=== PATIENT | female | born 1980 | race Caucasian/White ===

== ENCOUNTER 2017-12-19 08:30 | Inpatient (IN) | payer BC, OTHER ==
[2017-12-19 09:00] VITALS: BMI 30.8
[2017-12-19 09:46] LABS: Amnisure Test RUPTURE DETECTED (No Rupture)
[2017-12-19 09:48] LABS: Amnisure Internal Control QC ACCEPTABLE (ACCEPTABLE)
[2017-12-19] MEDS ORDERED: Zolpidem Tartrate 5 MG TAB PO PRN (11:08)
[2017-12-19] MEDS ORDERED: Butorphanol Tartrate 1 MG/ML VIAL SLOW IVP PRN (11:08)
[2017-12-19] MEDS ORDERED: Docusate 100 MG CAP PO PRN (11:08)
[2017-12-19] MEDS ORDERED: Ondansetron PF 4 MG/2 ML Vial IVP PRN ×2 (11:08→16:11)
[2017-12-19] MEDS ORDERED: Promethazine HCl 25 MG/ML VIAL IM PRN ×2 (11:08→16:11)
[2017-12-19] MEDS ORDERED: Bicitra 30 ML UDCUP PO SCH (11:15)
[2017-12-19 11:20] LABS: Hemoglobin 13.4 g/dL (12.0-16.0); Mean Corpuscular HGB CONC 32.7 g/dL (32.0-36.0); Mean Corpuscular Hemoglobin 28.9 pg (27.0-31.0); Mean Corpuscular Volume 88.4 fL (78.0-98.0); Mean Platelet Volume 10.3 fL (7.4-10.4); Platelet Count 168 thou/uL (130-400); RBC Distribution Width 12.7 % (11.5-14.5); Red Blood Cell (RBC) Count 4.64 mill/uL (4.20-5.40); White Blood Cell (WBC) Count 8.4 thou/uL (4.8-10.8)
[2017-12-19] MEDS ORDERED: CEFAZOLIN 2 GM/50 ML BAG IVPB SCH (11:30)
[2017-12-19 12:04] LABS: Syphilis Antibody Nonreactive (Nonreactive); Syphilis Antibody Index 0.03 S/CO (<1.00 Non-Reactive)
[2017-12-19 12:05] LABS: HBSAg Index 0.19 S/CO (0-0.99); Hep B Surf Ag Non-Reactive S/CO (NonReactive)
[2017-12-19] MEDS ORDERED: Fentanyl 100 MCG/2 ML VIAL ONE (12:49)
[2017-12-19] MEDS ORDERED: Oxytocin 10 UNITS/ML VIAL ONE (12:50)
[2017-12-19] MEDS ORDERED: Ondansetron PF 4 MG/2 ML Vial ONE ×2 (12:50→15:21)
[2017-12-19] MEDS ORDERED: PHENYLEPHRINE-NS 100 MCG/ML 10 ML SYRINGE ONE (12:50)
[2017-12-19] MEDS ORDERED: Morphine PF 1 MG/ML SYR ONE (12:50)
[2017-12-19] MEDS ORDERED: Ketorolac Tromethamine 30 MG/ML VIAL ONE ×2 (12:50→15:21)
[2017-12-19] MEDS ORDERED: Lidocaine 1% PF 5 ML VIAL ONE (12:56)
[2017-12-19] MEDS ORDERED: Bupivacaine 0.75% W/DEXTROSE 8.25% 2 ML AMP ONE (12:56)
[2017-12-19] MEDS ORDERED: ePHEDrine/0.9% NaCl/PF SYRINGE 50 mg/10 ml ONE ×2 (13:21→15:21)
[2017-12-19] MEDS ORDERED: Lanolin Ointment 7 GM TUBE TOP PRN (14:27)
[2017-12-19] MEDS ORDERED: Bisacodyl 10 MG SUPP PR PRN (14:27)
[2017-12-19] MEDS ORDERED: Acetaminophen 325 MG TAB PO PRN (14:27)
[2017-12-19] MEDS ORDERED: HYDROcodone/Acetaminophen 5/325 mg Tablet PO PRN ×2 (14:27)
[2017-12-19] MEDS ORDERED: Naloxone HCl 0.4 mg/ml Vial IV PRN (16:11)
[2017-12-19] MEDS ORDERED: Promethazine HCl 25 MG SUPP PR PRN (16:11)
[2017-12-19] MEDS ORDERED: diphenhydrAMINE 50 MG/ML VIAL IVP PRN (16:11)
[2017-12-19] MEDS ORDERED: Ketorolac Tromethamine 30 MG/ML VIAL IVP PRN (16:11)
[2017-12-19] MEDS ORDERED: Naloxone HCl 0.4 mg/ml Vial IVP PRN ×2 (16:11)
[2017-12-19] MEDS ORDERED: Eucerin (Mineral Oil/Petrolatum,White) 30 gm Jar TOP PRN (16:11)
[2017-12-19] MEDS ORDERED: Communication Order-Pharmacy FS SCH (16:15)
[2017-12-19] MEDS ORDERED: Docusate Calcium (SURFAK) 240 MG CAP PO SCH (21:00)
[2017-12-19] MEDS ORDERED: Ibuprofen 800 MG TAB PO SCH (22:00)
[2017-12-20] MEDS ORDERED: Butorphanol Tartrate 1 MG/ML VIAL SLOW IVP PRN (04:15)
[2017-12-20] MEDS ORDERED: HYDROcodone/Acetaminophen 5/325 mg Tablet PO PRN (04:15)
[2017-12-20 06:20] LABS: Hemoglobin 10.4 g/dL (12.0-16.0); Mean Corpuscular HGB CONC 32.6 g/dL (32.0-36.0); Mean Corpuscular Hemoglobin 29.4 pg (27.0-31.0); Mean Platelet Volume 9.5 fL (7.4-10.4); Platelet Count 138 thou/uL (130-400); RBC Distribution Width 12.6 % (11.5-14.5); Red Blood Cell (RBC) Count 3.54 mill/uL (4.20-5.40); White Blood Cell (WBC) Count 9.6 thou/uL (4.8-10.8)
[2017-12-20] MEDS ORDERED: Prenatal Vitamin 1 TAB PO SCH (09:00)
[2017-12-20] MEDS: Lactated Ringer's 1,000 ML IV SCH ×4 (09:02→14:58)
[2017-12-20] MEDS: Prenatal Vitamin 1 TAB PO SCH (09:03)
[2017-12-20] MEDS: Ferrous Sulfate 325 MG TAB PO SCH (09:04)
[2017-12-20] MEDS: HYDROcodone/Acetaminophen 5/325 mg Tablet PO PRN (15:05)
[2017-12-20] MEDS: Ibuprofen 800 MG TAB PO SCH ×2 (15:05→22:02)
[2017-12-21] MEDS: Lactated Ringer's 1,000 ML IV SCH ×2 (05:29→09:42)
[2017-12-21] MEDS: Ibuprofen 800 MG TAB PO SCH ×2 (05:57→14:01)
[2017-12-21] MEDS: Ferrous Sulfate 325 MG TAB PO SCH (08:13)
[2017-12-21] MEDS: Prenatal Vitamin 1 TAB PO SCH (08:15)
[2017-12-21] MEDS: HYDROcodone/Acetaminophen 5/325 mg Tablet PO PRN ×2 (08:15→14:09)
--- NOTE | 2017-12-21 08:20 | OP ---
DATE OF PROCEDURE: 12/19/2017 ATTENDING STAFF PHYSICIAN: Rai Villagomez M.D. SURGEONS: 1. Rai Villagomez M.D. 2. Elyssa Champagne MD PREOPERATIVE DIAGNOSES: 1. Term intrauterine at 38 and 3/7 weeks. 2. Spontaneous rupture of membranes in early labor. 3. Law breech presentation. POSTOPERATIVE DIAGNOSES. 1. Term intrauterine at 38 and 3/7 weeks. 2. Spontaneous rupture of membranes in early labor. 3. Law breech presentation. PROCEDURE: Primary low-transverse section. ANESTHESIA: Spinal catheterization. FINDINGS: 1. SROM, confirmed in Labor and Delivery. 2. Active labor with regular contractions. 3. Law breech presentation, confirmed with ultrasound. 4. Vigorous female , 5 pounds and 10 ounces. Apgars were 9 and 9. 5. Normal uterus, tubes, and ovaries. COMPLICATIONS: None. SPECIMENS REMOVED: Cord blood. ESTIMATED BLOOD LOSS: 500 mL (QBL 481 mL). HISTORY AND INDICATIONS: Mrs. Kayleigh Washburn is a very pleasant 37-year-old white female, 1, para 0, who is followed in my clinic for obstetric care. Kayleigh called early on the morning of 12/19 complaining of leaking fluid. She was told to present to Labor and Delivery for spontaneous ru pture of membranes (SROM was confirmed). The patient was known to be breech presentation. Presentat ion was confirmed with ultrasound in Labor and Delivery. The patient was noted to be brian dwayne ry 3-4 minutes with increased frequency of her contractions. Because of the clinical findings as not ed above, we elected to proceed with primary low-transverse section. The patient was counse led at length and questions were answered to her satisfaction. Surgical disclosures were signed and placed in the chart. PROCEDURE IN DETAIL: After thorough consent and counseling, Mrs. Kayleigh Washburn was taken to the ope rating room and adequate level of anesthesia was obtained by spinal catheterization. The patient was prepped and draped in the usual fashion for abdominal surgery. A Escobedo was placed in the bladder, w hich was noted to be draining clear urine. Attention was then turned to performing the low-transvers e section. A Pfannenstiel incision was made and carried sharply to the fascia, which was also sharply incised. The midline was identified and the rectus muscles were retracted laterally. The abdominal peritoneal cavity was entered with usual safeguards carried out. A retractor was placed and a bladder flap was created on the vesicouterine peritoneum. A bladder blade was then placed. A low-transverse incisio n was made on the well-developed lower uterine segment. Upon entering the amniotic sac, scant amount of amniotic fluid was appreciated. As noted above, the was noted to be law breech presenta tion. The breech was carefully delivered in an atraumatic fashion. Using the Mauriceau maneuver, sh oulders and aftercoming head were then carefully delivered. The baby was bulb suctioned on the abdom en. The cord was doubly clamped and cut and the was handed to the pediatric team in [facility] for delivery. The infant was a vigorous viable female weighing 5 pounds 10 ounces with Apgars of 9 and 9 obtained at 1 and 5 minutes respectively. Cord blood was obtained. The placenta was manually removed from the uterus. The uterus was exteriorized and good tone was noted. The uterine cavity w as cleared of any remaining clot and fluid. The low-transverse incision was closed with a running-lo cking ligature of #1 chromic. Several hhwatd-[id number]-mrsdr ligatures of #1 chromic were also placed to fa cilitate strength and hemostasis. The vesicouterine peritoneum was reapproximated to the lower segme nt with a running ligature of 3-0 Monocryl. The posterior cul-de-sac and gutters were cleared of fer t and fluid. Seprafilm was applied to the low-transverse incision and to the anterior aspect of the uterus for adhesion prevention. The uterus was returned to the abdomen. Good tone and hemostasis ag ain appreciated. Lap, sponge, and needle counts were correct. The peritoneum was closed with a runn ing ligature of 2-0 Vicryl. The rectus muscles were reapproximated in the midline with interrupted l igatures of 2-0 Vicryl and #1 chromic. The fascia was then closed with 2 ligatures of 0 Vicryl sutur e, which were tied in the midline. Good fascial integrity was appreciated. The incision was irrigat ed with copious amount of warm normal saline. The subcutaneous tissue was closed with interrupted li gatures of 2-0 plain. The skin was closed with a subcuticular stitch of 4-0 Monocryl and dressed wit h Dermabond. Lap, sponge, and needle counts were correct x3. Estimated blood loss during the surgic al procedure was approximately 500 mL. The patient was taken to recovery room in good condition. Immediately following surgery, the patient and family were made aware of the surgical procedure and operative findings. The baby was brought t o the recovery room shortly after delivery for skin to skin contact and feeding. The patient and her were very appreciative of the care rendered here at [facility] this afternoon.
[2017-12-21 11:41] VITALS: BP 115/60; TEMP 98.5
== END 2017-12-21 14:40 | disposition home or self-care (01) | DRG 788 ==
LOC: L&D/OP 08:30 → L&D 09:47 → 3SW 16:26
PROVIDERS: ADMIT Obstetrics & Gynecology; ATTEND Obstetrics & Gynecology
PROC: 10D00Z1 Extraction of Products of Conception, Low, Open Approach (ICD-10-PCS; principal; 2017-12-19)
DX: O32.1XX0 Maternal care for breech presentation, not applicable or unspecified (principal); Z3A.38 38 weeks gestation of pregnancy; Z37.0 Single live birth
CPT/HCPCS: 36415; 51702; 76815; 84112; 85027; 86780; 86850; 86900; 86901; 87340; 99285; J1885; J2001; J2274; J2405; J2550; J2590; J3010; J3490

== ENCOUNTER 2020-02-22 07:48 | Outpatient (CLI) | payer OTHER ==
[2020-02-22 21:23] LABS: SARS-CoV-2 MS2 Positive; SARS-CoV-2 N Gene Negative; SARS-CoV-2 S Gene Negative; SARS-CoV-2 by NAA Not Detected (NotDetected); SARS-CoV-2 orf1ab Negative
== END 2020-02-22 07:49 | disposition home or self-care (01) ==
LOC: LABBT 07:48
PROVIDERS: ATTEND Obstetrics & Gynecology
DX: Z01.812 Encounter for preprocedural laboratory examination (principal); Z20.822 Contact with and (suspected) exposure to COVID-19
CPT/HCPCS: 87635; U0003

== ENCOUNTER 2020-02-26 05:42 | Inpatient (IN) | payer BC, OTHER ==
[2020-02-26 06:21] VITALS: BMI 30.1
[2020-02-26] MEDS: Lactated Ringer's 1,000 ML IV SCH ×5 (06:41→20:03)
[2020-02-26] MEDS ORDERED: Bicitra 30 ML UDCUP PO PRN (06:46)
[2020-02-26] MEDS ORDERED: Ondansetron PF 4 MG/2 ML Vial IVP PRN ×3 (06:46→08:47)
[2020-02-26] MEDS ORDERED: hydrALAZINE 20 MG/ML VIAL SLOW IVP PRN ×2 (06:46→08:47)
[2020-02-26] MEDS ORDERED: Famotidine/PF 20 mg/2ml Vial SLOW IVP PRN (06:46)
[2020-02-26] MEDS ORDERED: Promethazine HCl 25 MG/ML VIAL IM PRN ×2 (06:46→07:10)
[2020-02-26 06:56] LABS: Hemoglobin 11.9 g/dL (12.0-16.0); Mean Corpuscular HGB CONC 33.1 g/dL (32.0-36.0); Mean Corpuscular Hemoglobin 29.2 pg (27.0-31.0); Mean Corpuscular Volume 88.1 fL (78.0-98.0); Mean Platelet Volume 9.3 fL (7.4-10.4); Platelet Count 180 thou/uL (130-400); RBC Distribution Width 12.2 % (11.5-14.5); Red Blood Cell (RBC) Count 4.08 mill/uL (4.20-5.40); White Blood Cell (WBC) Count 8.1 thou/uL (4.8-10.8)
[2020-02-26] MEDS ORDERED: Promethazine HCl 25 MG SUPP PR PRN (07:10)
[2020-02-26] MEDS ORDERED: Naloxone HCl 0.4 mg/ml Vial IVP PRN ×2 (07:10)
[2020-02-26] MEDS ORDERED: Meperidine HCl/PF 25 MG/ML VIAL SLOW IVP PRN (07:10)
[2020-02-26] MEDS ORDERED: Ondansetron HCl/PF 4 MG/2 ML Vial IVP PRN (07:10)
[2020-02-26] MEDS ORDERED: Naloxone HCl 0.4 mg/ml Vial IV PRN (07:10)
[2020-02-26] MEDS ORDERED: L&D-Morphine 4 MG/ML VIAL SLOW IVP PRN (07:10)
[2020-02-26] MEDS ORDERED: HYDROmorphone 2 MG/ML VIAL SLOW IVP PRN (07:10)
[2020-02-26] MEDS ORDERED: diphenhydrAMINE 50 MG/ML VIAL IVP PRN (07:10)
[2020-02-26] MEDS ORDERED: Communication Order-Pharmacy FS SCH (07:15)
[2020-02-26] MEDS ORDERED: CEFAZOLIN 2 GM in Premix Bag 1 BAG IVPB SCH (07:15)
[2020-02-26] MEDS ORDERED: Oxytocin 10 UNITS/ML VIAL ONE (07:16)
[2020-02-26] MEDS ORDERED: ePHEDrine 50 MG/ML VIAL ONE (07:16)
[2020-02-26] MEDS ORDERED: Ondansetron PF 4 MG/2 ML Vial ONE (07:16)
[2020-02-26] MEDS ORDERED: Dexamethasone 4 mg/ml Vial ONE (07:16)
[2020-02-26] MEDS ORDERED: Fentanyl 100 MCG/2 ML VIAL ONE (07:16)
[2020-02-26] MEDS ORDERED: Morphine PF 10 MG/10 ML VIAL ONE (07:16)
[2020-02-26] MEDS ORDERED: Ketorolac Tromethamine 30 MG/ML VIAL ONE (07:16)
[2020-02-26] MEDS ORDERED: Phenylephrine 10 MG/ML VIAL ONE (07:20)
[2020-02-26 07:37] LABS: Syphilis Antibody Nonreactive (Nonreactive); Syphilis Antibody Index 0.04 S/CO (<1.00 Non-Reactive)
[2020-02-26 07:38] LABS: HBSAg Index 0.17 S/CO (0-0.99); Hep B Surf Ag Non-Reactive S/CO (NonReactive)
[2020-02-26] MEDS ORDERED: Bisacodyl 10 MG SUPP PR PRN (08:47)
[2020-02-26] MEDS ORDERED: Lanolin Ointment 7 GM TUBE TOP PRN (08:47)
[2020-02-26] MEDS ORDERED: diphenhydrAMINE 25 MG CAP PO PRN (08:47)
[2020-02-26] MEDS ORDERED: Misoprostol 200 MCG TAB PR PRN (08:47)
[2020-02-26] MEDS ORDERED: Adacel (T-DAP) 0.5 ML SYRINGE IM ONE (08:47)
[2020-02-26] MEDS ORDERED: Acetaminophen 325 MG TAB PO PRN (08:47)
[2020-02-26] MEDS ORDERED: Zolpidem Tartrate 5 MG TAB PO PRN (08:47)
--- NOTE | 2020-02-26 10:02 | OP ---
DATE OF PROCEDURE: 02/26/2020 RESIDENT SURGEON: Keri Verdugo MD PREOPERATIVE DIAGNOSES: 1. Term intrauterine at 39 weeks. 2. Prior section. POSTOPERATIVE DIAGNOSES: 1. Term intrauterine at 39 weeks. 2. Prior section. PROCEDURE: Repeat low transverse section. ANESTHESIA: Spinal catheterization. FINDINGS: 1. Minimal scarring and adhesions secondary to previous adhesion prevention measures. 2. Vigorous female , 2291 g, Apgars 8 and 9. 3. Normal uterus, tubes, and ovaries. COMPLICATIONS: None. SPECIMENS REMOVED: Cord blood. ESTIMATED BLOOD LOSS: 400 mL (QBL = 280cc) DESCRIPTION OF PROCEDURE: After thorough consent and counseling, Ms. Carla Washburn was taken to the operating room and adequate level of anesthesia was obtained via spinal catheterization. The patient was prepped and draped in sterile fashion for abdominal surgery. A Escobedo was placed in the bladder, which was noted to be draining clear urine. A team time-out was performed per protocol. Attention was then turned to performing the repeat low-transverse section. A Pfannenstiel incision was made and the old scar was excised. The incision was carried sharply to the fascia, which was also sharply incised. The midline was identified and the rectus muscles were retracted laterally. The abdominal peritoneal cavity was entered with usual safeguards carried out. A retractor was placed and a bladder flap was created on the vesicouterine peritoneum. A bladder blade was then placed. A low-transverse incision was made on the well-developed lower uterine segment. Upon entering the amniotic sac, copious amount of clear amniotic fluid was visualized. The was noted to be vertex presentation in the occiput anterior position, still high in the pelvis. Head was delivered and baby was bulb suctioned on the abdomen. Nuchal cord x2 was reduced. Shoulders and body were then also delivered in an atraumatic fashion. There was additional cord entanglement noted around the left arm, the body, and the right leg. The cord was easily reduced. The cord was doubly clamped and cut and the infant was handed to the neonatology team in attendance for the delivery. The was vigorous viable female, weighing 2291 g with Apgars of 8 and 9 obtained at one and five minutes respectively. Cord blood was obtained. The placenta was manually removed from the uterus. The uterus was exteriorized and good tone was noted. The uterine cavity was cleared of any remaining clot and fluid. The low-transverse incision was closed with a running locking ligature of #1 chromic. The vesicouterine peritoneum was reapproximated to the lower segment with a running ligature of 2-0 Monocryl. Once again, good tone and hemostasis were appreciated. Seprafilm was applied to the low-transverse incision and to the anterior aspect of the uterus for adhesion prevention. The uterus was returned to the abdomen. Lap, sponge, needle counts were correct. The peritoneum was closed in a running ligature of 2-0 Vicryl. The rectus muscles were reapproximated in the midline with interrupted ligatures of 2-0 Vicryl suture. The fascia was then closed with 2 ligatures of 0 Vicryl suture, which were tied in the midline. Good fascial integrity was appreciated. The incision was irrigated with copious amount of warm normal saline. The subcutaneous tissue was closed with interrupted ligatures of 2-0 plain. The skin was then closed with subcuticular stitch of 4-0 Monocryl and dressed with Dermabond. Lap, sponge, and needle counts correct x3. Estimated blood loss from the surgical procedure approximately 400 mL. QBL 280cc. The patient was taken to recovery room in good condition. Immediately following surgery, the patient and family were made aware of the surgical procedure and operative findings. Questions were answered to their satisfaction. Baby was returned to the recovery room for skin to skin contact and . Ms. Washburn and her were very appreciative of the care rendered here at [facility]. Job ID: [id number] [id number]
[2020-02-26] MEDS ORDERED: Fentanyl 100 MCG/2 ML VIAL SLOW IVP PRN (12:24)
[2020-02-26] MEDS ORDERED: Acetaminophen 650 MG Suppository PR SCH (12:45)
[2020-02-26] MEDS: Prenatal Vitamin 1 TAB PO SCH (13:20)
[2020-02-26] MEDS: Docusate Calcium (SURFAK) 240 MG CAP PO SCH ×2 (13:20→21:52)
[2020-02-26] MEDS: Ferrous Sulfate 325 MG TAB PO SCH (13:21)
[2020-02-26] MEDS: Acetaminophen 650 MG Suppository PR SCH ×2 (17:51→23:47)
[2020-02-26] MEDS ORDERED: Meperidine HCl/PF 25 MG/ML VIAL IM PRN (19:30)
[2020-02-26] MEDS ORDERED: HYDROcodone/Acetaminophen 5/325 mg Tablet PO PRN (19:30)
[2020-02-26] MEDS: Ketorolac Tromethamine 30 MG/ML VIAL IVP PRN (20:02)
[2020-02-27] MEDS ORDERED: Sodium Chloride 0.9% 10 ML ONE (03:00)
[2020-02-27] MEDS: Ketorolac Tromethamine 30 MG/ML VIAL IVP PRN (03:06)
[2020-02-27 07:34] LABS: Hemoglobin 10.3 g/dL (12.0-16.0); Mean Corpuscular HGB CONC 32.8 g/dL (32.0-36.0); Mean Corpuscular Hemoglobin 29.6 pg (27.0-31.0); Mean Corpuscular Volume 90.3 fL (78.0-98.0); Mean Platelet Volume 9.3 fL (7.4-10.4); Platelet Count 159 thou/uL (130-400); RBC Distribution Width 12.4 % (11.5-14.5); Red Blood Cell (RBC) Count 3.48 mill/uL (4.20-5.40); White Blood Cell (WBC) Count 11.5 thou/uL (4.8-10.8)
[2020-02-27] MEDS: Simethicone Chewable 80 MG TAB PO PRN ×2 (08:21→20:30)
[2020-02-27] MEDS: Docusate Calcium (SURFAK) 240 MG CAP PO SCH ×2 (08:21→21:52)
[2020-02-27] MEDS: HYDROcodone/Acetaminophen 5/325 mg Tablet PO PRN ×2 (08:21→20:30)
[2020-02-27] MEDS: Prenatal Vitamin 1 TAB PO SCH (08:21)
[2020-02-27] MEDS: Ferrous Sulfate 325 MG TAB PO SCH ×2 (08:24→16:58)
[2020-02-27] MEDS: Lactated Ringer's 1,000 ML IV SCH ×2 (10:00→16:58)
[2020-02-27] MEDS: Ibuprofen 800 MG TAB PO SCH ×2 (13:23→21:52)
[2020-02-28] MEDS: Lactated Ringer's 1,000 ML IV SCH ×2 (02:33→08:36)
[2020-02-28] MEDS: Ibuprofen 800 MG TAB PO SCH (05:06)
[2020-02-28] MEDS: Simethicone Chewable 80 MG TAB PO PRN (05:06)
[2020-02-28 08:20] VITALS: BP 114/58; TEMP 98.3
[2020-02-28] MEDS: Prenatal Vitamin 1 TAB PO SCH (08:33)
[2020-02-28] MEDS: Docusate Calcium (SURFAK) 240 MG CAP PO SCH (08:33)
[2020-02-28] MEDS: Ferrous Sulfate 325 MG TAB PO SCH (08:34)
== END 2020-02-28 11:00 | disposition home or self-care (01) | DRG 788 ==
LOC: L&D 05:42 → 3SW 11:26
PROVIDERS: ADMIT Obstetrics & Gynecology; ATTEND Obstetrics & Gynecology
PROC: 10D00Z1 Extraction of Products of Conception, Low, Open Approach (ICD-10-PCS; principal; 2020-02-26)
DX: O34.211 Maternal care for low transverse scar from previous cesarean delivery (principal); Z3A.39 39 weeks gestation of pregnancy; Z37.0 Single live birth; Z20.822 Contact with and (suspected) exposure to COVID-19; F32.9 Major depressive disorder, single episode, unspecified; F41.9 Anxiety disorder, unspecified; O99.344 Other mental disorders complicating childbirth; Z79.899 Other long term (current) drug therapy; Z87.442 Personal history of urinary calculi
CPT/HCPCS: 36415; 51702; 85027; 86780; 86850; 86900; 86901; 87340; J0690; J1100; J1885; J2270; J2370; J2405; J3010; J3490

== ENCOUNTER 2021-10-01 13:41 | Outpatient (CLI) | payer BC | END 2021-10-01 13:42 | disposition home or self-care (01) | LOC: BICULT 13:41 | PROVIDERS: ATTEND Nurse Practitioner Family | DX: R10.11 Right upper quadrant pain (principal); K80.20 Calculus of gallbladder without cholecystitis without obstruction; K76.89 Other specified diseases of liver | CPT/HCPCS: 76705 ==

== ENCOUNTER 2021-11-23 08:46 | Outpatient (CLI) | payer BC ==
[2021-11-13 11:58] VITALS: BMI 25.1
[2021-11-23] MEDS ORDERED: Iopamidol-370 76% 500 ML 1 ML ONE (12:01)
== END 2021-11-23 08:47 | disposition home or self-care (01) ==
LOC: BICCT 08:46
PROVIDERS: ATTEND Specialist
DX: K76.89 Other specified diseases of liver (principal); K76.9 Liver disease, unspecified; Z90.49 Acquired absence of other specified parts of digestive tract
CPT/HCPCS: 74170; Q9967

== ENCOUNTER 2022-05-14 08:19 | Outpatient (CLI) | payer BC ==
[2022-05-14 08:58] LABS: #Basophils 0.1 10x3/uL (0.0-0.2); #Eosinphils 0.3 10x3/uL (0.0-0.5); #Monocytes 0.4 10x3/uL (0.0-1.1); #Neutrophils 3.2 10x3/uL (1.5-8.4); %Eosinophils 4.8 % (0.0-6.0); %Lymphocytes 25.3 % (18.0-47.0); %Monocytes 6.8 % (0.0-10.0); %Neutrophils 61.9 % (40.0-75.0); Hemoglobin 12.7 g/dL (12.0-15.5); Mean Corpuscular HGB CONC 32.4 g/dL (32.0-36.0); Mean Corpuscular Hemoglobin 28.6 pg (27.0-33.0); Mean Corpuscular Volume 88.3 fl (81.6-98.3); Mean Platelet Volume 10.2 fl (7.4-10.4); Platelet Count 268 10x3/uL (150-450); RBC Distribution Width 11.6 % (11.5-14.5); Red Blood Cell (RBC) Count 4.44 10x6/uL (3.90-5.03); White Blood Cell (WBC) Count 5.2 10x3/uL (3.5-10.5)
[2022-05-14 09:08] LABS: Anion Gap 14 mmol/L (10-20); BUN (Urea Nitrogen) 13 mg/dL (7.0-18.7); Calc. Creatinine Clearance 0 mL/min (70-130); Carbon Dioxide 25 mmol/L (22-29); Chloride 104 mmol/L (98-107); Estimated GFR 90; Glucose 90 mg/dL (70-105); Potassium 4.3 mmol/L (3.5-5.1); Sodium 139 mmol/L (136-145)
[2022-05-14 09:14] LABS: BHCG - Serum Negative (NEGATIVE); Pregs Control Background? CLEAR/WHITE (CLR/WHITE); Pregs Control Bar Appear? YES (CONTROL BAR)
== END 2022-05-14 08:20 | disposition home or self-care (01) ==
LOC: LABBT 08:19
PROVIDERS: ATTEND Specialist
DX: Z01.812 Encounter for preprocedural laboratory examination (principal); L76.82 Other postprocedural complications of skin and subcutaneous tissue; Z90.49 Acquired absence of other specified parts of digestive tract
CPT/HCPCS: 80048; 84703; 85025

== ENCOUNTER 2022-05-18 06:00 | Day surgery (SDC) | payer BC ==
[2022-05-17 12:17] VITALS: BMI 25.1
[2022-05-18] MEDS ORDERED: Lidocaine 1% MPF 2 ML VIAL ONE (06:33)
[2022-05-18] MEDS ORDERED: Sodium Chloride 0.9% 100 ML ONE (06:33)
[2022-05-18] MEDS ORDERED: Acetaminophen 500 MG TAB ONE (06:33)
[2022-05-18] MEDS ORDERED: Ketorolac Tromethamine 30 MG/ML VIAL ONE (06:33)
[2022-05-18] MEDS ORDERED: CEFAZOLIN 2 GM VIAL ONE (06:33)
[2022-05-18] MEDS ORDERED: fentaNYL PF 100 MCG/2 ML SYRINGE ONE (06:41)
[2022-05-18] MEDS ORDERED: Bupivacaine/Epinephrine 0.25% 30 ML VIAL ONE (07:00)
[2022-05-18] MEDS ORDERED: Scopolamine 1.5 mg/72 hour Patch ONE (07:26)
[2022-05-18] MEDS ORDERED: Midazolam HCl 2 mg/2 ml Vial ONE (07:26)
[2022-05-18] MEDS ORDERED: Dexamethasone 20 MG/5 ML VIAL ONE (07:41)
[2022-05-18] MEDS ORDERED: PROPOFOL 200 MG/20 ML VIAL ONE (07:41)
[2022-05-18] MEDS ORDERED: Ondansetron PF 4 MG/2 ML Vial ONE (07:41)
[2022-05-18] MEDS ORDERED: Lidocaine 1% PF 5 ML VIAL ONE (07:41)
[2022-05-18] MEDS ORDERED: Bacitracin Zinc Ointment 30 gm TUBE ONE (08:34)
== END 2022-05-18 10:15 | disposition home or self-care (01) ==
LOC: SDC 06:00
PROVIDERS: ATTEND Specialist
PROC: 0JB80ZZ Excision of Abdomen Subcutaneous Tissue and Fascia, Open Approach (ICD-10-PCS; principal; 2022-05-18)
PROC: 0JQ80ZZ Repair Abdomen Subcutaneous Tissue and Fascia, Open Approach (ICD-10-PCS; principal; 2022-05-18)
DX: L76.82 Other postprocedural complications of skin and subcutaneous tissue (principal); G43.009 Migraine without aura, not intractable, without status migrainosus; Z79.899 Other long term (current) drug therapy; Z90.49 Acquired absence of other specified parts of digestive tract
CPT/HCPCS: 88305; J1100; J1885; J2250; J2405; J2704; J3490